=== PATIENT | female | born 1925 | race Caucasian/White ===

== ENCOUNTER 2017-04-01 08:47 | Emergency (ER) | payer OTHER ==
[~2017-04-01] VITALS: Ht 175.3 cm; Wt 68.0 kg
[~2017-04-01 08:47] MED LIST: ASPIR 8181 MG PO; B12-METHYL1000 MC1 PO; KEFLEX500 MG PO; LAC PO; LIPITOR80 MG PO; POTASSIUM CHLO10 MEQ PO; XARELTO15 M1 PO
[2017-04-01 09:35] LABS: BASOPHIL % 0.3 % (0-2); PLATELET COUNT 188 x10^3mcL (130-400)
[2017-04-01 09:39] LABS: CALCIUM 8.9 mg/dL (8.5-10.1); CARBON DIOXIDE 31.4 mmol/L (21-32); CHLORIDE SERUM 109 mmol/L (98-107); GLUCOSE SERUM 110 mg/dL (74-106); POTASSIUM SERUM 4.5 mmol/L (3.5-5.1); SODIUM SERUM 144 mmol/L (136-145)
[2017-04-01 09:45] LABS: ALKALINE PHOSPHATASE 85 U/L (46-116); ALT/SGPT 58 U/L (14-59); AST/SGOT 29 U/L (15-37); BILIRUBIN TOTAL 0.4 mg/dL (0.20-1.00); TOTAL PROTEIN, SERUM 6.4 g/dL (6.4-8.2)
[2017-04-01 09:52] LABS: ALBUMIN 3.1 g/dL (3.4-5.0)
[2017-04-01 11:18] VITALS: BP 120/79
== END 2017-04-01 11:18 | disposition home or self-care (01) ==
LOC: ED 08:47
PROVIDERS: Emergency Medicine
DX: R04.0 Epistaxis (principal); F03.90 Unspecified dementia, unspecified severity, without behavioral disturbance, psychotic disturbance, mood disturbance, and anxiety; Z87.19 Personal history of other diseases of the digestive system
CPT/HCPCS: 36415; 83880

== ENCOUNTER → 2017-06-08 | Outpatient (CLI) | payer OTHER, BC | END | disposition home or self-care (01) | LOC: US 16:00 | PROC: B54BZZZ Ultrasonography of Right Lower Extremity Veins (ICD-10-PCS; principal; 2017-06-08) | DX: M79.89 Other specified soft tissue disorders (principal) ==